=== PATIENT | female | born 1955 | race Caucasian/White ===

== ENCOUNTER 2018-12-16 08:26 | Emergency (ER) | payer OTHER ==
[~2018-12-16] VITALS: Ht 175.3 cm; Wt 95.0 kg
[2018-12-16] MEDS ORDERED: LOSA100T14 PO (09:09)
--- NOTE | 2018-12-16 09:09 | NUR ---
PT REWSTING ON [place]PE [place] MONITORS IN PLACE. CALL LIGHT IN REACH. AT BEDSIDE. AWATING ORDERS. ALL CONCERNS ADRESSED.
[2018-12-16] MEDS ORDERED: SODIUM CHLORIDE FLUSH 10ML SYR IVF ONE (09:30)
[2018-12-16 09:34] LABS: BASOPHILS # (AUTO) 0.05 x10^3/uL (0-0.1); BASOPHILS % (AUTO) 1 % (0-1); EOSINOPHILS # (AUTO) 0.17 x10^3/uL (0-0.4); EOSINOPHILS % (AUTO) 2 % (1-7); LYMPHOCYTES # (AUTO) 1.95 x10^3/uL (1-3.4); LYMPHOCYTES % (AUTO) 28 % (22-44); MD NO; MEAN CORPUSCULAR HEMOGLOBIN 31.9 pg (27.0-34.8); MEAN CORPUSCULAR HGB CONC 33.7 g/dL (32.4-35.8); MEAN CORPUSCULAR VOLUME 94.5 fL (80-100); MEAN PLATELET VOLUME 8.4 fL (7.4-10.4); MONOCYTES # (AUTO) 0.85 x10^3/uL (0.2-0.8); MONOCYTES % (AUTO) 12 % (2-9); NEUTROPHILS # (AUTO) 4.06 x10^3/uL (1.8-6.8); NEUTROPHILS % (AUTO) 57 % (42-75); PLATELET COUNT 243 x10^3/uL (130-400); RED BLOOD COUNT 4.77 x10^6/uL (3.82-5.3); RED CELL DISTRIBUTION WIDTH 13.5 % (9.6-15.2)
[2018-12-16] MEDS ORDERED: MECLIZINE CHEWABLE 25 MG TAB ONE (09:42)
[2018-12-16 09:47] LABS: ALBUMIN 3.4 g/dL (3.4-5.0); ANION GAP 6 mmol/L (5-15); CALCIUM 9.9 mg/dL (8.5-10.1); CHLORIDE 108 mmol/L (98-107); CREATININE 1.15 mg/dL (0.55-1.02)
[2018-12-16 09:51] LABS: TROPONIN I < 0.015 ng/mL (0.000-0.045)
[2018-12-16] MEDS ORDERED: MECLIZINE CHEWABLE 25 MG TAB PO ONE (10:00)
[2018-12-16] MEDS ORDERED: OMNIPAQUE 350 MG/ML, 100ML BOTTLE ONE (10:20)
[2018-12-16 12:15] VITALS: BP 132/93
--- NOTE | 2018-12-16 12:16 | NUR ---
TASK RN: Patient/Caregiver given discharge instructions and they have confirmed that they understand the instructions. Patient ambulatory with steady gait.
== END 2018-12-16 12:18 | disposition home or self-care (01) ==
LOC: ED 08:53
DX: H81.399 Other peripheral vertigo, unspecified ear (principal); I10 Essential (primary) hypertension; Z88.5 Allergy status to narcotic agent
CPT/HCPCS: 36415; 70496; 70498; 71045; 80048; 82040; 83880; 84484; 85025; 93005; 99284; Q9967

== ENCOUNTER 2020-12-10 15:41 | Emergency (ER) | payer OTHER ==
[~2020-12-10] VITALS: Ht 177.8 cm; Wt 99.2 kg
[~2020-12-10 15:41] MED LIST: LOSA100T14 PO
--- NOTE | 2020-12-10 16:10 | NUR ---
PT IS A 65F WHO COMPLAINS OF HBP AND FEELING DIZZY EARLIER TODAY. TOOK BP AT HOME AND WAS 190'S OVER 100. WENT TO URGENT CARE WHO RECOMMENDED SHE COME HERE FOR A WORK UP. PROVIDER AT BEDSIDE FOR FOR EVAL AND PLAN OF CARE. SPOUSE AT BEDSIDE. CURRENT READING 198/96. RETAIL BUSINESS ANALYST, CONTINUOUS SP02, AND CYCLING VITALS.
--- NOTE | 2020-12-10 16:18 | NUR ---
PER DR CARROLL, CLIENT TECHNICAL SPECIALIST NOT NEEDED.
--- NOTE | 2020-12-10 16:58 | NUR ---
PT RESTING COMFORTABLY ON GURNEY WITH SPOUSE AT BEDSIDE. VITALS UPDATED, CALL LIGHT WITHIN REACH, NO FURTHER NEEDS AT THIS TIME.
[2020-12-10 17:14] LABS: BASOPHILS % (AUTO) 1 % (0-1); EOSINOPHILS % (AUTO) 2 % (1-7); LYMPHOCYTES % (AUTO) 22 % (22-44); MEAN CORPUSCULAR HEMOGLOBIN 33.6 pg (27.0-34.8); MEAN CORPUSCULAR HGB CONC 34.3 g/dL (32.4-35.8); MEAN PLATELET VOLUME 8.4 fL (7.4-10.4); MONOCYTES % (AUTO) 12 % (2-9); NEUTROPHILS % (AUTO) 64 % (42-75); PLATELET COUNT 161 x10^3/uL (130-400); RED CELL DISTRIBUTION WIDTH 13.5 % (9.6-15.2)
[2020-12-10 17:15] LABS: MD NO
[2020-12-10 17:23] LABS: ALANINE AMINOTRANSFERASE 103 U/L (12-78); ALBUMIN 3.6 g/dL (3.4-5.0); ANION GAP 4 mmol/L (5-15); CALCIUM 9.7 mg/dL (8.5-10.1); CHLORIDE 110 mmol/L (98-107); CREATININE 1.14 mg/dL (0.55-1.02)
[2020-12-10 17:26] LABS: ALKALINE PHOSPHATASE 138 U/L (45-117); BILIRUBIN,TOTAL 0.6 mg/dL (0.2-1.0); TOTAL PROTEIN 7.8 g/dL (6.4-8.2)
--- NOTE | 2020-12-10 17:30 | NUR ---
spoke with Dr. Rodriguez to advise that the BP was still elevated. Awaiting order for additional meds.
[2020-12-10] MEDS ORDERED: IRBESARTAN 150 MG TABLET PO ONE (18:00)
--- NOTE | 2020-12-10 18:18 | NUR ---
REQUESTED IRBESARTAN FROM PHARMACY. DR OBIE HOUSE OF BP DECREASED TO 153/83. PT TO HAVE IRBESARTAN PRIOR TO DC
[2020-12-10 19:00] VITALS: BP 179/69
== END 2020-12-10 19:03 | disposition home or self-care (01) ==
LOC: ED 18:00
DX: I10 Essential (primary) hypertension (principal); R94.5 Abnormal results of liver function studies; I21.9 Acute myocardial infarction, unspecified; I49.3 Ventricular premature depolarization; R00.0 Tachycardia, unspecified
CPT/HCPCS: 36415; 80053; 85025; 93005; 99285

== ENCOUNTER 2020-12-12 13:41 | Emergency (ER) | payer OTHER ==
[~2020-12-12] VITALS: Ht 177.8 cm; Wt 98.6 kg
--- NOTE | 2020-12-12 14:03 | NUR ---
PT BIB VIA POV. PER PT WAS SEEN MONDAY FOR SAME. 200 SYSTOLIC AT HOME. PT REPORTS ON NEW BP MEDS, IRBESARTAN 150MG DAILY. PT DENIES CP/STAPLES/BLURRY VISION. LABS COLLECTED AND SENT TO LAB, PT RESTING IN [facility], AT BEDSIDE, MONITORING IN PLACE, NADN AT THIS TIME, PER PT NO NEEDS, WCTM.
[2020-12-12 14:10] LABS: BASOPHILS % (AUTO) 1 % (0-1); EOSINOPHILS % (AUTO) 3 % (1-7); LYMPHOCYTES % (AUTO) 33 % (22-44); MEAN CORPUSCULAR HEMOGLOBIN 34.1 pg (27.0-34.8); MEAN CORPUSCULAR HGB CONC 34.5 g/dL (32.4-35.8); MEAN PLATELET VOLUME 8.7 fL (7.4-10.4); MONOCYTES % (AUTO) 13 % (2-9); NEUTROPHILS % (AUTO) 50 % (42-75); PLATELET COUNT 173 x10^3/uL (130-400); RED BLOOD COUNT 5.17 x10^6/uL (3.82-5.3); RED CELL DISTRIBUTION WIDTH 13.3 % (9.6-15.2)
[2020-12-12 14:11] LABS: MD NO
[2020-12-12 14:28] LABS: ALBUMIN 3.8 g/dL (3.4-5.0); ANION GAP 7 mmol/L (5-15); CALCIUM 10.4 mg/dL (8.5-10.1); CHLORIDE 105 mmol/L (98-107)
[2020-12-12 14:32] LABS: ALANINE AMINOTRANSFERASE 121 U/L (12-78); ALKALINE PHOSPHATASE 134 U/L (45-117); BILIRUBIN,TOTAL 0.7 mg/dL (0.2-1.0); CREATININE 1.23 mg/dL (0.55-1.02); TOTAL PROTEIN 8.5 g/dL (6.4-8.2)
[2020-12-12] MEDS ORDERED: HYDROCHLOROTHIAZIDE 25 MG TABLET PO ONE (15:30)
[2020-12-12 16:47] VITALS: BP 174/111
--- NOTE | 2020-12-12 16:48 | NUR ---
BP 174/111, DR. GIRALDO AWARE. PT TO BE DISCHARGED HOME, TO DRIVE HER VIA POV. DISCHARGE INSTRUCTIONS AND EDUCATION GIVEN.
== END 2020-12-12 16:50 | disposition home or self-care (01) ==
LOC: ED 14:24
DX: I10 Essential (primary) hypertension (principal); I21.9 Acute myocardial infarction, unspecified; Z88.0 Allergy status to penicillin
CPT/HCPCS: 36415; 80053; 85025; 93005; 99284